=== PATIENT | female | born 1985 | race Caucasian/White ===

== ENCOUNTER 2016-06-10 20:25 | Emergency (ER) | payer OTHER ==
--- NOTE | 2016-06-10 20:49 | ED ---
ENT HPI - General Chief complaint: Dental/Oral Stated complaint: absys Time Seen by Provider: 06/10/16 20:33 Source: patient, RN notes reviewed Mode of arrival: ambulatory Limitations: no limitations - History of Present Illness Initial comments: Patient is a 31-year-old female presents to the emergency room for evaluation of the left upper facial swelling. Patient states she woke up this morning with left-sided facial swelling and pain. Patient states around 1:00 this afternoon she went to [facility] patient received a dose of IV antibiotics and morphine was sent home with clindamycin. Patient states that the swelling has significantly worsened since she was sent home from [facility]. Patient states that is also having increased pain. Patient denies dental pain. Patient does state she had tooth recently pulled out a month ago in that area. Patient states she is due to go to the dentist on Monday. Patient denies fevers or chills. Patient states she is having significant headache from facial swelling. - Related Data Previous Rx's Medication Instructions Recorded predniSONE 50 mg PO DAILY #4 tab 06/10/16 Allergies Allergy/AdvReac Type Severity Reaction Status Date / Time No Known Allergies Allergy Verified 06/10/16 20:30 Review of Systems ROS Statement: Those systems with pertinent positive or pertinent negative responses have been documented in the HPI. ROS Other: All systems not noted in ROS Statement are negative. Past Medical History Past Medical History: GERD/Reflux Additional Past Medical History / Comment(s): endometriosis History of Any Multi-Drug Resistant Organisms: None Reported Past Surgical History: Hysterectomy, Tubal Ligation Additional Past Surgical History / Comment(s): D&C, Past Psychological History: No Psychological Hx Reported Smoking Status: Never smoker Past Alcohol Use History: None Reported Past Drug Use History: None Reported - Past Family History Mother Family Medical History: No Reported History General Exam - General Exam Comments Initial Comments: Sitting in exam room, no acute distress. Limitations: no limitations General appearance: alert, in no apparent distress Head exam: Present: atraumatic, normocephalic, normal inspection Eye exam: Present: PERRL, EOMI ENT exam: Present: other (significant left sided facial edema over the left maxillary sinus) Neck exam: Present: lymphadenopathy (left anterior cervical) Respiratory exam: Absent: respiratory distress Extremities exam: Present: normal inspection Back exam: Present: normal inspection Neurological exam: Present: alert, oriented X3, CN II-XII intact, normal gait Psychiatric exam: Present: normal affect, normal mood Skin exam: Present: warm, dry, intact, normal color. Absent: rash Course Vital Signs 06/10/16 06/10/16 06/10/16 20:27 22:46 23:32 Temperature 98.4 F 9.8 F L 98.8 F Pulse Rate 120 H 102 H 100 Respiratory 20 18 18 Rate Blood Pressure 152/84 131/71 115/67 O2 Sat by Pulse 98 98 95 Oximetry Medical Decision Making - Medical Decision Making Patient is a 31-year-old female presents to the emergency room for evaluation of left-sided facial swelling and pain. Patient was given another dose of IV clindamycin. CT significant for facial cellulitis, no abscess noted. Patient is also given a dose of Solu-Medrol. Patient states she is feeling better after pain management. Labs show no significant findings. Will send patient home and advised her to continue taking her previously prescribed clindamycin as directed. Patient has [place] at home for pain. Will also add on prednisone. Advised patient to return for worsening symptoms. Patient states she understands everything that was discussed with her. Return parameters discussed. Case discussed with Dr. Wade. - Lab Data Result diagrams: 06/10/16 21:15 Lab Results 06/10/16 Range/Units 21:15 WBC 12.3 H (3.8-10.6) k/uL RBC 3.82 (3.80-5.40) m/uL Hgb 11.9 (11.4-16.0) gm/dL Hct 35.8 (34.0-46.0) % MCV 93.5 (80.0-100.0) fL MCH 31.2 (25.0-35.0) pg MCHC 33.4 (31.0-37.0) g/dL RDW 13.5 (11.5-15.5) % Plt Count 230 (150-450) k/uL Neutrophils % 91 % Lymphocytes % 5 % Monocytes % 3 % Eosinophils % 1 % Basophils % 0 % Neutrophils # 11.2 H (1.3-7.7) k/uL Lymphocytes # 0.6 L (1.0-4.8) k/uL Monocytes # 0.4 (0-1.0) k/uL Eosinophils # 0.1 (0-0.7) k/uL Basophils # 0.0 (0-0.2) k/uL - Radiology Data Radiology results: report reviewed, image reviewed Disposition Clinical Impression: Facial cellulitis Disposition: HOME SELF-CARE Condition: Good Instructions: Cellulitis (ED) Additional Instructions: Continue taking antibiotics as directed. Continue taking pain medications as needed. Ice on and off for 20 minutes at a time. Please follow up with primary care provider in 24-48 hours for reevaluation. If any new symptom arises , symptoms worsen or fever develops, return to ER as soon as possible. Prescriptions: predniSONE 50 mg PO DAILY #4 tab Referrals: Jose Lacey DO [Primary Care Provider] - 1-2 days Time of Disposition: 23:18
[2016-06-10] MEDS ORDERED: MORPHINE SULFATE 10 MG/ML SYRINGE IM STA (20:55)
[2016-06-10] MEDS ORDERED: CLINDAMYCIN 450 MG in DEXTROSE 5% IN WATER 50 ML IVPB STA ×2 (21:01)
[2016-06-10 21:26] LABS: Basophils % (A) 0 %; CH 31.5; CHCM 33.8; Eosinophils # (A) 0.1 k/uL (0-0.7); Eosinophils % (A) 1 %; HCT 35.8 % (34.0-46.0); HDW 2.65; HGB 11.9 gm/dL (11.4-16.0); Luc # (Auto) 0.08; Luc % (Auto) 1; Lymphocytes # (A) 0.6 k/uL (1.0-4.8); Lymphocytes % (A) 5 %; MCH 31.2 pg (25.0-35.0); MCHC 33.4 g/dL (31.0-37.0); MCV 93.5 fL (80.0-100.0); Mean Platelet Volume 6.9; Monocytes # (A) 0.4 k/uL (0-1.0); Monocytes % (A) 3 %; Neutrophils # (A) 11.2 k/uL (1.3-7.7); Neutrophils % (A) 91 %; RBC 3.82 m/uL (3.80-5.40); RDW 13.5 % (11.5-15.5); WBC 12.3 k/uL (3.8-10.6); WBC (Perox) 12.46
[2016-06-10] MEDS ORDERED: RX INFO: IV CONTRAST WAS GIVEN 1 EACH MISC MISCELLANE PRN (22:15)
[2016-06-10 22:47] VITALS: RESP 18
[2016-06-10] MEDS ORDERED: HYDROmorphone 1 MG/ML 1 ML SYRINGE IVP STA (22:47)
--- NOTE | 2016-06-10 23:03 | CT ---
EXAMINATION TYPE: CT orbits w con DATE OF EXAM: 06/10/2016 10:40 PM COMPARISON: NONE HISTORY: Pt states of left orbital swelling that is worsening down left side of face. CT DLP: 434.6 mGycm Automated exposure control for dose reduction was used. CONTRAST: Performed with IV Contrast, patient injected with 100 mL of Omnipaque 300. FINDINGS: Multiple axial sections were obtained from the top of the frontal sinuses to the lower mandible with intravenous contrast. There is soft tissue swelling and subcutaneous edema anterior to the left maxil la. The orbital margins are intact. There is no sign of retro-orbital mass. The maxilla is intact. Vi sualized mandible is intact. There is mucosal thickening in the right maxillary sinus. There is mucos al thickening in the right side ethmoid sinus. There is mild mucosal thickening at the left ostiomeat al complex. The nasal bone is intact. IMPRESSION: THERE IS LEFT-SIDED INFRAORBITAL SOFT TISSUE SWELLING CONSISTENT WITH CELLULITIS. NO EVIDENCE OF ORBI SUZETTE MASS. MILD RIGHT-SIDED MAXILLARY AND ETHMOID SINUSITIS. NO ABSCESS SEEN.
[2016-06-10] MEDS ORDERED: methylPREDNISolone SOD SUCCI 125 MG/2 ML VIAL IV STA (23:17)
[2016-06-10 23:33] VITALS: BP 115/67; PULSE 100; TEMP 98.8
== END 2016-06-10 23:32 | disposition home or self-care (01) ==
LOC: EC 20:25
DX: L03.211 Cellulitis of face (principal); R51 Headache
CPT/HCPCS: 36415; 85025; 70481; 99283; 96375; 96372; 96365; J2930; J2270; J1170; Q9967

== ENCOUNTER 2016-06-14 15:49 | Observation (INO) | payer OTHER ==
[2016-06-14] MEDS: KETOROLAC 30 MG/ML 1 ML VIAL IM SCH ×2 (18:14→23:52)
[2016-06-14 18:54] LABS: Basophils % (A) 0 %; CH 31.4; CHCM 33.3; Eosinophils # (A) 0.1 k/uL (0-0.7); Eosinophils % (A) 1 %; HCT 32.9 % (34.0-46.0); HDW 2.69; Luc # (Auto) 0.17; Luc % (Auto) 2; Lymphocytes # (A) 2.3 k/uL (1.0-4.8); Lymphocytes % (A) 24 %; MCH 31.7 pg (25.0-35.0); MCHC 33.4 g/dL (31.0-37.0); MCV 94.9 fL (80.0-100.0); Mean Platelet Volume 6.7; Monocytes # (A) 0.5 k/uL (0-1.0); Monocytes % (A) 5 %; Neutrophils # (A) 6.7 k/uL (1.3-7.7); Neutrophils % (A) 69 %; RBC 3.46 m/uL (3.80-5.40); RDW 13.8 % (11.5-15.5); WBC 9.8 k/uL (3.8-10.6)
[2016-06-14 19:01] LABS: Anion Gap 9 mmol/L; Blood Urea Nitrogen 17 mg/dL (7-17); Calcium 8.9 mg/dL (8.4-10.2); Carbon Dioxide 27 mmol/L (22-30); Chloride 103 mmol/L (98-107); Glucose 88 mg/dL (74-99); Non-African American GFR(MDRD) >60 (>60 ml/min/1.73 sqM); Potassium 3.4 mmol/L (3.5-5.1); Sodium 139 mmol/L (137-145)
[2016-06-14] MEDS: SODIUM CHLORIDE 0.9% 1,000 ML with POTASSIUM CHLORIDE 10 MEQ IV SCH ×2 (19:30)
[2016-06-14] MEDS: ONDANSETRON 4 MG/2 ML VIAL IVP PRN (21:07)
[2016-06-14] MEDS: PIPERACILLIN-TAZOBACTAM 3.375 GM in DEXTROSE/WATER 1 50ML.BAG IVPB SCH (23:52)
[2016-06-15] MEDS: ONDANSETRON 4 MG/2 ML VIAL IVP PRN ×2 (05:54→14:41)
[2016-06-15] MEDS: KETOROLAC 30 MG/ML 1 ML VIAL IM SCH ×4 (05:54→23:48)
[2016-06-15] MEDS: ENOXAPARIN 40 MG/0.4 ML SYRINGE SQ SCH (07:32)
[2016-06-15] MEDS: PIPERACILLIN-TAZOBACTAM 3.375 GM in DEXTROSE/WATER 1 50ML.BAG IVPB SCH (07:32)
[2016-06-15] MEDS: SODIUM CHLORIDE 0.9% 1,000 ML with POTASSIUM CHLORIDE 10 MEQ IV SCH ×6 (07:32→20:48)
[2016-06-15 10:15] VITALS: RESP 16
[2016-06-15] MEDS ORDERED: IV VANCOMYCIN PER PHARMACY 1 EACH MISC MISCELLANE PRN (10:59)
[2016-06-15] MEDS ORDERED: VANCOMYCIN 1,000 MG in SODIUM CHLORIDE 0.9% 250 ML IVPB STA (11:05)
--- NOTE | 2016-06-15 11:36 | HP ---
DATE OF ADMISSION: 06/14/2016 PRESENTING COMPLAINT: Left facial swelling. HISTORY OF PRESENTING COMPLAINT: This is a 31-year-old patient who was admitted from Dr. Lacey's office. Patient about 3 or 4 days ago started off with what she felt like sinus infection with green snot, did go down to [facility] ER and also [facility]. Did have a CT scan, showed cellulitis of the soft tissue, very small amount of sinusitis, if any. Patient denies any tooth pain. Patient was on Augmentin, did not respond to it, hence she was admitted. Patient did not have any obvious fever, but had felt hot and cold. Patient's is at the bedside. REVIEW OF SYSTEMS: CONSTITUTIONAL: Tired. HEENT: Left-sided facial swelling, which is improved actually after antibiotics overnight. RESPIRATORY: None. CARDIOVASCULAR: None. GASTROINTESTINAL: None. GENITOURINARY: None. MUSCULOSKELETAL: None. DERMATOLOGIC: None. HEMATOLOGIC: None. LYMPHATIC: None. PSYCHIATRY: None. NEUROLOGICAL: None. Past history of endometriosis. PAST SURGICAL HISTORY: Cholecystectomy, partial hysterectomy, tubal ligation, D&C. SOCIAL HISTORY: Does not smoke or drink alcohol. , homemaker. FAMILY HISTORY: Reviewed, noncontributory to presentation. HOME MEDICATIONS: 1. Motrin 600 mg p.o. t.i.d. p.r.n. 2. Augmentin 1 tablet q.12. ALLERGIES: None. On examination, temperature 98.4, pulse 120, respirations 20, blood pressure 131/71, pulse ox 98% on room air. GENERAL APPEARANCE: Average build, sitting up, not in distress. EYES: Pupils equal, conjunctivae normal. HEENT: There is no tenderness either in the upper maxilla or lower maxilla in the tooth on deep palpation. There is no tenderness over the maxilla. There is some facial swelling in the infraorbital area, unable to do deep palpation. NECK: JVD not raised. Mass not palpable. Respiratory effort normal. Lungs are clear. CARDIOVASCULAR: First and second sounds normal. No edema. ABDOMEN: Soft, nontender. Liver and spleen not palpable. LYMPHATIC: No lymph node palpable in neck or axillae. PSYCHIATRY: Alert and oriented x3. Mood and affect normal. NEUROLOGICAL: Pupils equal, cranial nerves grossly intact, power and sensation grossly intact. INVESTIGATIONS: White count 12.3 on 06/10 and yesterday it was 9.8. Patient's CT scan from 06/10/2016 shows soft tissue swelling and subcutaneous edema attributed to the left maxilla, orbital margins are intact, maxilla is intact. Slight mucosal thickening on the right maxillary sinus. Mild mucosal thickening at the left ostiomeatal complex. ASSESSMENT: Left facial cellulitis, probably from using the tissue and maybe a cracking skin around nasolabial fold area. Overnight patient has received IV Zosyn to which she is feeling a bit better. Patient is able to tolerate liquids comfortably, in fact on solid foods. I do not see any obvious evidence of any tooth abscess. There is no tenderness on the teeth. PLAN: Patient has been IV Unasyn. I will add vancomycin. Diet will be advanced. Toradol for anterior inflammatory affect. Care was discussed with the patient and her in detail.
[2016-06-15 11:51] VITALS: BMI 23.2
--- NOTE | 2016-06-15 13:05 | CONS ---
DATE OF CONSULTATION: 06/15/2016 Reason for consultation is facial cellulitis. HISTORY OF PRESENT ILLNESS: The patient is a 31-year-old female who started having a problem with left facial swelling last week for which the patient was initially evaluated at [facility] ER. Patient diagnosed with cellulitis. She was given an IV antibiotic and then discharged home on oral antibiotics and initial pain medication. The patient said when she went home, the left-sided facial swelling became worse. She is describing pain to be throbbing 6 to 7/10 and no radiation. The patient denies having any other sinus symptoms or sinus congestion, runny nose, post-nasal drip or sinus headache, besides having any fever. Subsequently presented to the [facility] ER where the patient has been evaluated. The patient did have a CT of the orbits with contrast which did show left-sided infraorbital soft tissue swelling consistent with cellulitis. No evidence of orbital mass, mild right-sided maxillary sinusitis and no abscess seen. Patient subsequently was discharged home and she was advised to follow up with the primary care physician who did evaluate the patient. Hence, subsequently the patient directed to the hospital for IV antibiotic therapy. The patient will be started on Zosyn. I was asked to see the patient for further recommendation regarding antibiotic therapy. The patient was noticed to have no swelling or redness on my evaluation this morning. No fever has been noticed. Patient denies any difficulty swallowing. The patient did have poor dentition but denies worsening pain in the upper or lower teeth on the left side. REVIEW OF SYSTEMS: CONSTITUTIONAL: Positive for weakness and some chills. EYES: No complaint. ENT: As per HPI. RESPIRATORY: No complaint. CARDIOVASCULAR: No complaint. GENITOURINARY: No complaint. GASTROINTESTINAL: No complaint. MUSCULOSKELETAL: No complaint. INTEGUMENTARY: No complaint. PSYCHOLOGIC: No complaint. ENDOCRINE: No complaint. NEUROLOGIC: No complaint. PAST MEDICAL HISTORY: Gastroesophageal reflux disease, endometriosis. PAST SURGICAL HISTORY: Hysterectomy, tubal ligation, D&C. SOCIAL HISTORY: Denies smoking, drinking or drug use. FAMILY HISTORY: No pertinent finding noticed. ALLERGIES: No known drug allergies. Medications currently include the patient is on: 1. [place]per-tazobactam. 2. Zofran. 3. Lovenox. 4. Toradol. 5. IV fluid. On examination, blood pressure is 99/54 with a pulse of 88, temperature 98.6. She is 98% on room air. General description is an elderly female, lying in bed in no distress. No tachypnea or accessory muscle of respiration use. HEENT examination shows slight pallor. No scleral icterus. Oral mucosa is moist. The patient did have evidence of poor dentition on the upper premolar area with some gingivitis. No sinus tenderness was noticed. NECK: Trachea central. There is no thyromegaly. No lymphadenopathy. LUNGS: Unlabored breathing. Clear to auscultation anteriorly. HEART: S1, S2. Regular rate and rhythm. ABDOMEN: Soft, no tenderness. EXTREMITIES: No edema of the feet. LABS: Hemoglobin is 11 with a white count of 9.8 with a BUN of 17, creatinine 0.54. She did have blood cultures obtained which are currently pending. DIAGNOSTIC IMPRESSION AND PLAN: Patient with left facial cellulitis more likely secondary to underlying poor dentition. Clinically doubt related to underlying sinus infection as the patient did not have significant sinus symptoms and she was noticed to have significant mobility on the dentition examination today. Patient needs to be worked up. No evidence of dental abscess for which Oral Surgery has already been consulted. PLAN: 1. Discontinue the Zosyn. 2. Will start the patient on Unasyn 3 gm IV q6hr. 3. Await the Oral Surgery evaluation to see if the patient may benefit from extraction of the infected teeth and deep culture. 4. Will follow up on the clinical condition and cultures to further adjust the medication if needed. Thank you for this consultation. Will follow this patient along with you. NICOEL
[2016-06-15] MEDS: AMPICILLIN-SULBACTAM 3 GM in SODIUM CHLORIDE 0.9% 100 ML IVPB SCH ×3 (13:07→23:48)
[2016-06-15] MEDS: VANCOMYCIN 1,000 MG in SODIUM CHLORIDE 0.9% 250 ML IVPB SCH (21:25)
[2016-06-16] MEDS: KETOROLAC 30 MG/ML 1 ML VIAL IM SCH ×2 (05:37→12:42)
[2016-06-16] MEDS: SODIUM CHLORIDE 0.9% 1,000 ML with POTASSIUM CHLORIDE 10 MEQ IV SCH ×4 (05:38→11:25)
[2016-06-16] MEDS: AMPICILLIN-SULBACTAM 3 GM in SODIUM CHLORIDE 0.9% 100 ML IVPB SCH ×2 (05:38→12:45)
[2016-06-16 07:57] VITALS: BP 118/70; PULSE 98; TEMP 97
[2016-06-16] MEDS: ENOXAPARIN 40 MG/0.4 ML SYRINGE SQ SCH (08:19)
[2016-06-16] MEDS: VANCOMYCIN 1,000 MG in SODIUM CHLORIDE 0.9% 250 ML IVPB SCH (08:19)
[2016-06-16 09:06] LABS: Anion Gap 7 mmol/L; Blood Urea Nitrogen 11 mg/dL (7-17); Calcium 8.4 mg/dL (8.4-10.2); Carbon Dioxide 25 mmol/L (22-30); Chloride 108 mmol/L (98-107); Glucose 94 mg/dL (74-99); Non-African American GFR(MDRD) >60 (>60 ml/min/1.73 sqM); Potassium 4.1 mmol/L (3.5-5.1); Sodium 140 mmol/L (137-145)
--- NOTE | 2016-06-16 14:22 | PN ---
DATE OF SERVICE: 06/16/2016 Reason for follow-up: Left facial cellulitis and dental infection. INTERVAL HISTORY: The patient is afebrile. The patient denies any worsening pain to the left facial area or any difficulty swallowing. Denies any chest pain or shortness of breath or cough. No abdominal pain or any diarrhea. On examination, blood pressure 118/70 with a pulse of 90, temperature 97. She is 100% on room air. General description is a middle-age female up in the bed in no distress. RESPIRATORY SYSTEM: Unlabored breathing. Clear to auscultation anteriorly. HEART: S1, S2. Regular rate and rhythm. ABDOMEN: Soft. No tenderness. Examination of the oral cavity did have evidence of poor dentition. No evidence of any swelling or facial redness was noticed. LABS: BUN of 11, creatinine 0.57. Blood culture has been negative. DIAGNOSTIC IMPRESSION AND PLAN: Patient with left facial swelling and redness more likely due to underlying poor dental hygiene and poor dentition. Patient advised did well on Unasyn, plan will be to finish therapy with Augmentin 875 b.i.d. for two weeks with outpatient follow-up. [facility]
[2016-06-17] MEDS ORDERED: VANCOMYCIN TROUGH DUE 1 EACH MISC MISCELLANE ONE (07:00)
--- NOTE | 2016-06-17 09:58 | DS ---
DATE OF ADMISSION: 06/15/2016 DATE OF DISCHARGE: 06/16/2016 FINAL DIAGNOSES: Acute severe facial cellulitis having failed outpatient treatment. HOSPITAL COURSE: This patient having failed outpatient treatment presented with severe facial cellulitis. The patient was started on Augmentin as an outpatient. Vancomycin was added just in case MRSA was present. No obvious sinusitis was found. Patient responded well to the same. On the day of discharge, swelling had greatly gone down. On examination, no tenderness, afebrile. CONSULTATION: From infectious disease. DISCHARGE MEDICATIONS: 1. Motrin 600 mg p.o. t.i.d. p.r.n. 2. Bactrim DS 1 tablet p.o. b.i.d. 14 tablets. Follow up with Dr. Lacey on 06/23/2016. Follow-up with Dr. Coulter pnate.
== END 2016-06-16 14:41 | disposition home or self-care (01) ==
LOC: 4MS4W 16:11 → INTOOBSV 06-15 12:29 → OBSVTOIN 06-15 12:29
PROVIDERS: ADMIT Hospitalist; ATTEND Hospitalist
DX: L03.211 Cellulitis of face (principal); K05.10 Chronic gingivitis, plaque induced; Z90.49 Acquired absence of other specified parts of digestive tract; Z90.711 Acquired absence of uterus with remaining cervical stump
CPT/HCPCS: 80048 ×2; 85025; 87040; G0379; G0378 ×3; J3370 ×2; J2405 ×2; J3480 ×3; J1650 ×2; J1885 ×3; J2543 ×2; J0295 ×2; 96365; 96366; 96367; 96368; 96372; 96375; 96376

== ENCOUNTER → 2017-08-28 | Outpatient (CLI) | payer OTHER ==
--- NOTE | 2017-08-28 23:03 | XR ---
EXAMINATION TYPE: XR shoulder complete RT DATE OF EXAM: 08/28/2017 COMPARISON: NONE HISTORY: Pain TECHNIQUE: Three views are submitted. FINDINGS: The osseous structures are intact. There is no acute fracture or dislocation. The AC joint is maint ained. IMPRESSION: 1. No acute process. If symptoms persist consider MRI.
--- NOTE | 2017-08-28 23:04 | XR ---
EXAMINATION TYPE: XR elbow limited RT DATE OF EXAM: 08/28/2017 COMPARISON: NONE HISTORY: Pain FINDINGS: Two views of the elbow demonstrate no pathologic joint effusion. The osseous structures are intact. There is no acute fracture or dislocation. IMPRESSION: 1. No acute fracture or dislocation. If symptoms persist follow-up study in 7 to 10 days could be ob tained.
== END | disposition home or self-care (01) ==
LOC: RADXRMAIN 10:41
PROVIDERS: ATTEND Family Medicine
DX: M79.601 Pain in right arm (principal)

== ENCOUNTER → 2018-01-12 | Outpatient (CLI) | payer OTHER ==
--- NOTE | 2018-01-15 09:51 | MM ---
Reason for exam: clinical finding. Last mammogram was performed 6 years and 2 months ago. History: Patient has history of endometrial cancer at age 13. Family history of breast cancer in paternal aunt at age 50. Benign excisional biopsy of the left breast, 2005. Physical Findings: Nurse Summary: 1 x 1cm nodule in the left breast at scar, various palpables bilateral breasts, all soft, movable (nurse ts). MG Diagnostic Mammo w CAD GREG Bilateral CC and MLO view(s) were taken. Prior study comparison: November 09, 2011, CAD bilateral diagnostic mammogram. July 06, 2007, mammogram, performed at [facility]. The breast tissue is extremely dense which could obscure a lesion on mammography. There are round calcifications in the right breast. There is no discrete abnormality. These results were verbally communicated with the patient and result sheet given to the patient on 01/12/18. ASSESSMENT: Incomplete: need additional imaging evaluation, BI-RAD 0 RECOMMENDATION: Ultrasound of the left breast. (palpable)
--- NOTE | 2018-01-15 10:13 | USB ---
Reason for exam: additional evaluation requested from abnormal screening. History: Patient has history of endometrial cancer at age 13. Family history of breast cancer in paternal aunt at age 50. Benign excisional biopsy of the left breast, 2005. US Breast BILAT Right complete breast ultrasound includes all four quadrants, the retroareolar region and axilla. Finding demonstrates a 0.9 x 0.5 x 0.6cm cystic cluster at 9 o'clock and a 0.5 x 0.4 x 0.7cm cystic cluster at 10 o'clock. Left complete breast ultrasound includes all four quadrants, the retroareolar region and axilla. Finding demonstrates a 0.4 x 0.3 x 0.3cm cystic lesion at 12 o'clock, a 0.5 x 0.2 x 0.4cm cystic lesion at 1 o'clock, a 0.8 x 0.3 x 0.5cm cystic cluster at 3 o'clock and a 0.5 x 0.3 x 0.5cm cystic cluster at 10 o'clock. Overall fibrocystic findings. These results were verbally communicated with the patient and result sheet given to the patient on 01/12/18. ASSESSMENT: Benign, BI-RAD 2 RECOMMENDATION: Routine screening mammogram of both breasts at age 38. Manage patient on a clinical basis.
== END ==
LOC: RADMAMWWP 15:05
PROVIDERS: ATTEND Family Medicine
DX: R92.8 Other abnormal and inconclusive findings on diagnostic imaging of breast (principal); N60.11 Diffuse cystic mastopathy of right breast; N60.12 Diffuse cystic mastopathy of left breast
CPT/HCPCS: 77066

== ENCOUNTER → 2018-05-31 | Outpatient (CLI) | payer OTHER ==
[2018-05-31 13:31] VITALS: BP 115/74; PULSE 101; RESP 18; TEMP 98.3; BMI 24.5
--- NOTE | 2018-05-31 14:12 | P.GSHP ---
History of Present Illness H&P Date: 05/31/18 Chief Complaint: breast cyst Britt is a 33-year-old white female who presents with a complaint of fibrocystic breast changes bilaterally. The changes are more prominent for the patient on the left breast. The patient had a bilateral mammogram performed in December 2017. This revealed extremely dense breast tissue and some round calcifications in the right breast but no discrete abnormality of concern. The patient was recommended to undergo an ultrasound of both breast. This was preformed on the same day and was a BIRADS 2, showing bilateral breast cyst. The patient has no new changes in her breasts. She does have bilateral nipple discharge which is sometimes clear and sometimes reddish brown. She has no history of trauma or infection in the breast. She has left breast discomfort, it is not related to her periods. She had a hysterctomy at 21 for endometriosis. She did not have her ovaries removed. The pain and cystic changes are not cyclical. The patient does not smoke, she is not exposed to second hand smoke very often, she does not drink caffienated beverages, and does not eat much chocolate. Family History: mother: lung cancer maternal grandfather: lung cancer maternal uncle: lung cancer paternal aunt: breast cancer of it at 49, diagnosed 6 months prior Hormonal History: menarche: 10 : 5, 3 live births, first born at 12 2 miscarrages, breast fed: none hysterectomy at 21 for endometroisis BCP: 2 years hormones: injections after hysterectomy, last one several years ago, done as they were checking her hormone levels Past Surgical History: 1. hysterectomy 2. breast biopsy left breast 2010 3. gallbladder 4. D&C Past Medical History: none Social History: smoke: none alcohol: none drugs: none - Constitutional Constitutional: Reports sweats - EENT Eyes: left blurred vision (intermittant related to migrains), denies pain Ears: bilateral: tinnitus, deny: decreased hearing Ears, nose, mouth and throat: Reports headache - Breasts Breasts: bilateral: as per HPI - Cardiovascular Cardiovascular: Denies chest pain, Denies shortness of breath - Respiratory Comment: asthma Respiratory: Denies cough, Denies 7 - Gastrointestinal Gastrointestinal: Denies abdominal pain, Denies diarrhea, Denies nausea, Denies vomiting - Genitourinary (Female) Genitourinary: Denies dysuria, Denies hematuria - Menstruation Menstruation: Reports post hysterectomy - Musculoskeletal Comment: fibromyalgia - Integumentary Integumentary: Denies pruritus, Denies rash - Neurological Neurological: Denies numbness, Denies weakness - Psychiatric Psychiatric: Denies anxiety, Denies depression - Endocrine Endocrine: Denies fatigue, Denies weight change - Hematologic/Lymphatic Comment: none - Allergic/Immunologic Comment: none Allergic/Immunologic: Reports as per HPI Past Medical History Past Medical History: GERD/Reflux Additional Past Medical History / Comment(s): endometriosis History of Any Multi-Drug Resistant Organisms: None Reported Past Surgical History: Cholecystectomy, Hysterectomy, Tubal Ligation Additional Past Surgical History / Comment(s): D&C, Past Anesthesia/Blood Transfusion Reactions: No Reported Reaction Past Psychological History: No Psychological Hx Reported Smoking Status: Never smoker Past Alcohol Use History: None Reported Past Drug Use History: None Reported - Past Family History Father History Unknown: Yes Mother Family Medical History: No Reported History Additional Family Medical History / Comment(s): HEALTHY Medications and Allergies Home Medications Medication Instructions Recorded Confirmed Type Ibuprofen [Motrin] 600 mg PO TID PRN 06/14/16 05/31/18 History Allergies Allergy/AdvReac Type Severity Reaction Status Date / Time No Known Allergies Allergy Verified 05/31/18 13:31 Surgical - Exam Vital Signs Temp Pulse Resp BP 98.3 F 101 H 18 115/74 05/31/18 13:23 05/31/18 13:23 05/31/18 13:23 05/31/18 13:23 BMI 24.6 - General well developed, well nourished, no distress - Eyes normal ocular movement - ENT no hearing loss, no congestion - Neck no masses, trachea midline - Respiratory normal respiratory effort, clear to auscultation - Cardiovascular Rhythm: regular Heart Sounds: normal: S1, S2 - Abdomen Abdomen: soft, non tender, no guarding, no rigid, no rebound - Neurologic no disoriented, no combative - Musculoskeletal normal gait, normal posture - Psychiatric oriented to time, oriented to person, oriented to place, speech is normal, memory intact Breast examination: Right breast: Multi-positional exam no dominant masses or nodules of concern fibrocystic dense breast Right axilla: No adenopathy of concern Left breast: Multi-positional exam no dominant masses or nodules of concern fibrocystic, dense breast Left axilla: no adenopathy of concern no nipple discharge at this time Results mammogram and ultrasound reports reviewed Assessment and Plan Assessment: impression: 1. dense fibrocystic breast bilateral 2. breast pain Plan: 1. [place] oil 2. Appointment with Dr. Casiano, possible testing for hormone levels 3. follow up in 6 weeks CC: Dr. Lacey
== END | disposition home or self-care (01) ==
LOC: WWCWWP 13:10
PROVIDERS: ATTEND Surgery
DX: Z53.9 Procedure and treatment not carried out, unspecified reason (principal)

== ENCOUNTER → 2018-09-17 | Outpatient (CLI) | payer OTHER ==
--- NOTE | 2018-09-18 14:24 | XR ---
EXAMINATION TYPE: XR chest 2V DATE OF EXAM: 09/17/2018 COMPARISON: Prior chest x-ray 04/06/2015 HISTORY: Palpable mass, R07.89 TECHNIQUE: Frontal and lateral views of the chest are obtained. FINDINGS: There is no focal air space opacity, pleural effusion, or pneumothorax seen. The cardiac silhouette size is stable. The osseous structures are intact. Surgical clips are present in the rig ht upper abdomen. There is overlying artifact. IMPRESSION: No acute cardiopulmonary process.
== END ==
LOC: RADXRMAIN 16:59
PROVIDERS: ATTEND Physician Assistant
DX: R07.89 Other chest pain (principal)
CPT/HCPCS: 71046

== ENCOUNTER 2018-10-24 14:42 | Emergency (ER) | payer OTHER ==
[2018-10-24 14:48] VITALS: TEMP 98.1
[2018-10-24] MEDS ORDERED: ONDANSETRON 4 MG/2 ML VIAL IVP STA (15:31)
[2018-10-24] MEDS ORDERED: SODIUM CHLORIDE 0.9% 1,000 ML IV ONE (15:32)
--- NOTE | 2018-10-24 15:40 | ED ---
Nausea/Vomiting/Diarrhea HPI - General Chief complaint: Nausea/Vomiting/Diarrhea Stated complaint: vomiting Source: patient Mode of arrival: ambulatory Limitations: no limitations - History of Present Illness Initial comments: 33-year-old female presenting today for chief complaint of vomiting. Patient states she has had mid abdominal pain and vomiting, diarrhea for the past day. Patient states that she cannot keep anything down. Patient is concerned of the abdominal cramping and presents emergency department for evaluation. Patient denies melena hematochezia, hematemesis. Patient denies recent travel or sick contacts. Patient denies states she has a partial hysterically. Remaining review of systems negative. - Related Data Home Medications Medication Instructions Recorded Confirmed Ibuprofen [Motrin] 600 mg PO TID PRN 06/14/16 10/24/18 Previous Rx's Medication Instructions Recorded Ondansetron Odt [Zofran Odt] 4 mg PO Q8HR PRN 5 Days #15 tab 10/24/18 Allergies Allergy/AdvReac Type Severity Reaction Status Date / Time No Known Allergies Allergy Verified 10/24/18 14:51 Review of Systems ROS Statement: Those systems with pertinent positive or pertinent negative responses have been documented in the HPI. ROS Other: All systems not noted in ROS Statement are negative. Past Medical History Past Medical History: GERD/Reflux Additional Past Medical History / Comment(s): endometriosis History of Any Multi-Drug Resistant Organisms: None Reported Past Surgical History: Cholecystectomy, Hysterectomy, Tubal Ligation Additional Past Surgical History / Comment(s): D&C, Past Anesthesia/Blood Transfusion Reactions: No Reported Reaction Past Psychological History: No Psychological Hx Reported Smoking Status: Never smoker Past Alcohol Use History: None Reported Past Drug Use History: None Reported - Past Family History Father History Unknown: Yes Mother Family Medical History: No Reported History Additional Family Medical History / Comment(s): HEALTHY General Exam - General Exam Comments Initial Comments: General: The patient is awake and alert, in no distress, and does not appear acutely ill. Eye: +3 mm pupils are equal, round and reactive to light, extra-ocular movements are intact. No nystagmus. There is normal conjunctiva bilaterally. No signs of icterus. Ears, nose, mouth and throat: There are moist mucous membranes and no oral lesions. Neck: The neck is supple, there is no tenderness or JVD. Cardiovascular: There is a regular rate and rhythm. No murmur, rub or gallop is appreciated. Respiratory: Lungs are clear to auscultation, respirations are non-labored, breath sounds are equal. No wheezes, stridor, rales, or rhonchi. Gastrointestinal: Soft, non-distended, abdomen tender to the periumbilical region without masses or organomegaly noted. There is no rebound or guarding present. Bowel sounds are unremarkable. Musculoskeletal: Normal ROM, no tenderness. Strength 5/5. Sensation intact. Pulses equal bilaterally 2+. Neurological: A&O x 3. CN II-XII intact, There are no obvious motor or sensory deficits. Coordination appears grossly intact. Speech is normal. Skin: Skin is warm and dry and no rashes or lesions are noted. Psychiatric: Cooperative, appropriate mood & affect, normal judgment. Limitations: no limitations Course Vital Signs 10/24/18 10/24/18 14:43 18:42 Temperature 98.1 F Pulse Rate 100 79 Respiratory 18 16 Rate Blood Pressure 125/78 108/73 O2 Sat by Pulse 98 100 Oximetry Medical Decision Making - Medical Decision Making 33-year-old female presented for vomiting diarrhea mid abdominal pain. Developing examination. Laboratory studies unremarkable. Urinalysis unremarkable. Patient's labs have no acute abnormalities. Patient was given IV hydration and antiemetics the emergency department. CT of abdomen and pelvis obtained given abdominal pain on examination in the periumbilical region. CT was negative for acute appendicitis, or any other acute intraabdominal process. Discussed the case with attending provider as well as results with patient we feel patient is stable for discharge with outpatient primary care follow-up. Patient is agreeable care plan and discharge at this time. Return parameters were discussed. - Lab Data Result diagrams: 10/24/18 16:15 10/24/18 16:15 Lab Results 10/24/18 10/24/18 10/24/18 Range/Units 16:15 16:15 16:15 WBC 6.3 (3.8-10.6) k/uL RBC 4.29 (3.80-5.40) m/uL Hgb 13.0 (11.4-16.0) gm/dL Hct 40.0 (34.0-46.0) % MCV 93.2 (80.0-100.0) fL MCH 30.3 (25.0-35.0) pg MCHC 32.6 (31.0-37.0) g/dL RDW 13.2 (11.5-15.5) % Plt Count 219 (150-450) k/uL Neutrophils % 72 % Lymphocytes % 20 % Monocytes % 5 % Eosinophils % 1 % Basophils % 1 % Neutrophils # 4.6 (1.3-7.7) k/uL Lymphocytes # 1.2 (1.0-4.8) k/uL Monocytes # 0.3 (0-1.0) k/uL Eosinophils # 0.1 (0-0.7) k/uL Basophils # 0.0 (0-0.2) k/uL Sodium 142 (137-145) mmol/L Potassium 3.9 (3.5-5.1) mmol/L Chloride 106 (98-107) mmol/L Carbon Dioxide 24 (22-30) mmol/L Anion Gap 12 mmol/L BUN 5 L (7-17) mg/dL Creatinine 0.65 (0.52-1.04) mg/dL Est GFR (CKD-EPI)AfAm >90 (>60 ml/min/1.73 sqM) Est GFR (CKD-EPI)NonAf >90 (>60 ml/min/1.73 sqM) Glucose 109 H (74-99) mg/dL Calcium 9.4 (8.4-10.2) mg/dL Total Bilirubin 0.8 (0.2-1.3) mg/dL AST 31 (14-36) U/L ALT 24 (9-52) U/L Alkaline Phosphatase 46 (38-126) U/L Total Protein 7.9 (6.3-8.2) g/dL Albumin 5.0 (3.5-5.0) g/dL Amylase 65 (30-110) U/L Lipase 66 (23-300) U/L Urine Color Yellow Urine Appearance Clear (Clear) Urine pH 6.0 (5.0-8.0) Ur Specific [place] 1.015 (1.001-1.035) Urine Protein Negative (Negative) Urine Glucose (UA) Negative (Negative) Urine Ketones 3+ H (Negative) Urine Blood Trace H (Negative) Urine Nitrite Negative (Negative) Urine Bilirubin Negative (Negative) Urine Urobilinogen <2.0 (<2.0) mg/dL Ur Leukocyte Esterase Negative (Negative) Urine RBC 4 (0-5) /hpf Urine WBC 1 (0-5) /hpf Ur Squamous Epith Cells 1 (0-4) /hpf Urine Mucus Occasional H (None) /hpf Urine HCG, Qual (Not Detectd) 10/24/18 Range/Units 16:15 WBC (3.8-10.6) k/uL RBC (3.80-5.40) m/uL Hgb (11.4-16.0) gm/dL Hct (34.0-46.0) % MCV (80.0-100.0) fL MCH (25.0-35.0) pg MCHC (31.0-37.0) g/dL RDW (11.5-15.5) % Plt Count (150-450) k/uL Neutrophils % % Lymphocytes % % Monocytes % % Eosinophils % % Basophils % % Neutrophils # (1.3-7.7) k/uL Lymphocytes # (1.0-4.8) k/uL Monocytes # (0-1.0) k/uL Eosinophils # (0-0.7) k/uL Basophils # (0-0.2) k/uL Sodium (137-145) mmol/L Potassium (3.5-5.1) mmol/L Chloride (98-107) mmol/L Carbon Dioxide (22-30) mmol/L Anion Gap mmol/L BUN (7-17) mg/dL Creatinine (0.52-1.04) mg/dL Est GFR (CKD-EPI)AfAm (>60 ml/min/1.73 sqM) Est GFR (CKD-EPI)NonAf (>60 ml/min/1.73 sqM) Glucose (74-99) mg/dL Calcium (8.4-10.2) mg/dL Total Bilirubin (0.2-1.3) mg/dL AST (14-36) U/L ALT (9-52) U/L Alkaline Phosphatase (38-126) U/L Total Protein (6.3-8.2) g/dL Albumin (3.5-5.0) g/dL Amylase (30-110) U/L Lipase (23-300) U/L Urine Color Urine Appearance (Clear) Urine pH (5.0-8.0) Ur Specific [place] (1.001-1.035) Urine Protein (Negative) Urine Glucose (UA) (Negative) Urine Ketones (Negative) Urine Blood (Negative) Urine Nitrite (Negative) Urine Bilirubin (Negative) Urine Urobilinogen (<2.0) mg/dL Ur Leukocyte Esterase (Negative) Urine RBC (0-5) /hpf Urine WBC (0-5) /hpf Ur Squamous Epith Cells (0-4) /hpf Urine Mucus (None) /hpf Urine HCG, Qual Not Detected (Not Detectd) Disposition Clinical Impression: Vomiting, Diarrhea Disposition: HOME SELF-CARE Condition: Good Instructions (If sedation given, give patient instructions): Acute Nausea and Vomiting (ED), Acute Diarrhea (ED) Additional Instructions: Please use medication as discussed. Please follow-up with family doctor in the next 2 days of symptoms have not improved. Please return to emergency room if the symptoms increase or worsen or for any other concerns. Prescriptions: Ondansetron Odt [Zofran Odt] 4 mg PO Q8HR PRN 5 Days #15 tab PRN Reason: Nausea Is patient prescribed a controlled substance at d/c from ED?: No Referrals: Jose Lacey DO [Primary Care Provider] - 1-2 days Time of Disposition: 17:50
[2018-10-24 16:24] LABS: Basophils % (A) 1 %; Eosinophils # (A) 0.1 k/uL (0-0.7); Eosinophils % (A) 1 %; Lymphocytes # (A) 1.2 k/uL (1.0-4.8); Lymphocytes % (A) 20 %; MCH 30.3 pg (25.0-35.0); MCHC 32.6 g/dL (31.0-37.0); MCV 93.2 fL (80.0-100.0); Mean Platelet Volume 7.2; Monocytes # (A) 0.3 k/uL (0-1.0); Monocytes % (A) 5 %; Neutrophils # (A) 4.6 k/uL (1.3-7.7); Neutrophils % (A) 72 %; Platelet Count 219 k/uL (150-450); RBC 4.29 m/uL (3.80-5.40); RDW 13.2 % (11.5-15.5); WBC 6.3 k/uL (3.8-10.6)
[2018-10-24 16:27] LABS: Appearance,Urine Clear (Clear); Bilirubin,Urine Negative (Negative); Blood,Urine Trace (Negative); Color,Urine Yellow; Glucose,Urine (UA) Negative (Negative); Ketones,Urine 3+ (Negative); Leukocyte Esterase,Urine Negative (Negative); Mucus,Urine Occasional /hpf; Nitrite,Urine Negative (Negative); Protein,Urine Negative (Negative); RBC,Urine 4 /hpf (0-5); Specific Gravity,Urine 1.015 (1.001-1.035); Squamous Epithelial Cell,Urine 1 /hpf (0-4); Urobilinogen,Urine <2.0 mg/dL (<2.0); WBC,Urine 1 /hpf (0-5)
[2018-10-24 16:33] LABS: ALT 24 U/L (9-52); AST 31 U/L (14-36); African American GFR (CKD) >90 (>60 ml/min/1.73 sqM); Alkaline Phosphatase 46 U/L (38-126); Amylase 65 U/L (30-110); Anion Gap 12 mmol/L; Blood Urea Nitrogen 5 mg/dL (7-17); Calcium 9.4 mg/dL (8.4-10.2); Carbon Dioxide 24 mmol/L (22-30); Chloride 106 mmol/L (98-107); Glucose 109 mg/dL (74-99); Lipase 66 U/L (23-300); Potassium 3.9 mmol/L (3.5-5.1); Sodium 142 mmol/L (137-145); Total Bilirubin 0.8 mg/dL (0.2-1.3); Total Protein 7.9 g/dL (6.3-8.2)
--- NOTE | 2018-10-24 17:40 | CT ---
EXAMINATION TYPE: CT abdomen pelvis w con DATE OF EXAM: 10/24/2018 COMPARISON: 10/17/2013 HISTORY: Generalized abdominal pain and vomiting bile. CT DLP: 543.4 mGycm Automated exposure control for dose reduction was used. TECHNIQUE: Helical acquisition of images was performed from the lung bases through the pelvis. CONTRAST: Performed without Oral Contrast and with IV Contrast, patient injected with 100 mL of Isovu e 300. FINDINGS: LUNG BASES: No significant abnormality is appreciated. LIVER/GB: No significant abnormality is appreciated. PANCREAS: No significant abnormality is seen. SPLEEN: No significant abnormality is seen. ADRENALS: No significant abnormality is seen. KIDNEYS: No significant abnormality is seen. PERITONEAL CAVITY: No free air is visualized. No peritoneal fluid. RETROPERITONEAL ADENOPATHY: None visualized REPRODUCTIVE ORGANS: No significant abnormality is seen URINARY BLADDER: No significant abnormality is seen. PELVIC ADENOPATHY: None visualized. OSSEOUS STRUCTURES: No significant abnormality is seen. BOWEL: No significant abnormality is seen. OTHER: No acute vascular findings. IMPRESSION: NO ACUTE PROCESS.
[2018-10-24 18:43] VITALS: BP 108/73; PULSE 79; RESP 16
== END 2018-10-24 18:45 | disposition home or self-care (01) ==
LOC: EC 14:42
DX: R11.2 Nausea with vomiting, unspecified (principal); R19.7 Diarrhea, unspecified; R10.33 Periumbilical pain; Z87.19 Personal history of other diseases of the digestive system; Z87.42 Personal history of other diseases of the female genital tract; Z90.49 Acquired absence of other specified parts of digestive tract; Z90.710 Acquired absence of both cervix and uterus; Z98.51 Tubal ligation status
CPT/HCPCS: 36415; 80053; 82150; 83690; 85025; 81001; 81025; 74177; 99284; 96374; 96361; J2405; Q9967

== ENCOUNTER → 2019-02-15 | Outpatient (CLI) | payer OTHER ==
[2019-02-15 13:24] LABS: HCT 38.4 % (34.0-46.0); HGB 12.3 gm/dL (11.4-16.0); MCH 31.3 pg (25.0-35.0); MCV 97.8 fL (80.0-100.0); Mean Platelet Volume 6.9; Platelet Count 214 k/uL (150-450); RBC 3.93 m/uL (3.80-5.40); RDW 13.5 % (11.5-15.5); WBC 5.6 k/uL (3.8-10.6)
[2019-02-15 18:28] LABS: African American GFR (CKD) 135.9 (60.0-200.0); Albumin 4.2 g/dL (3.80-4.90); Albumin/Globulin Ratio 2.21 (1.60-3.17); Anion Gap 6.6 mmol/L (4.00-12.00); BUN/Creat Ratio 13.33 Ratio (12.00-20.00); Carbon Dioxide 29.4 mmol/L (21.6-31.8); Globulin 1.9 g/dL (1.6-3.3); Potassium 4.1 mmol/L (3.5-5.5); Total Bilirubin 0.4 mg/dL (0.2-1.2); Total Protein 6.1 g/dL (6.2-8.2)
[2019-02-15 18:29] LABS: Vitamin D 25 Hydroxy 22.8 ng/mL (30.0-100.0)
[2019-02-15 18:30] LABS: Folate, Serum 7.7 ng/mL
== END | disposition home or self-care (01) ==
LOC: LABWHC1 12:11
PROVIDERS: ATTEND Nurse Practitioner Family
DX: R41.3 Other amnesia (principal)
CPT/HCPCS: 36415; 80053; 82306; 82607; 82746; 83090; 84439; 84443; 84481; 85027

== ENCOUNTER 2019-03-05 13:20 | Emergency (ER) | payer OTHER ==
[2019-03-05 13:58] VITALS: TEMP 98.4
[2019-03-05] MEDS ORDERED: PIPERACILLIN-TAZOBACTAM 3.375 GM in SODIUM CHLORIDE 0.9% 100 ML IVPB STA (14:42)
[2019-03-05] MEDS ORDERED: KETOROLAC 30 MG/ML 1 ML VIAL IVP STA (14:42)
--- NOTE | 2019-03-05 15:14 | ED ---
ENT HPI - General Source: patient, RN notes reviewed Mode of arrival: ambulatory Limitations: no limitations <Rex Ernst - Last Filed: 03/05/19 16:44> <Elly Arriaga - Last Filed: 03/08/19 01:21> - General Chief complaint: ENT Stated complaint: Sinus infection Time Seen by Provider: 03/05/19 14:31 - History of Present Illness Initial comments: 34-year-old female presents emergency department to complaint of left-sided facial pain, swelling. Patient states started last 5-6 states she has taken 4 days worth of Augmentin with progressively worsening symptoms. Patient states she's had 3 admitted in the past for similar infections. Patient has never seen an ENT outpatient. Patient states that she does have broken tooth and left upper dentition minute states it's not bothersome. She reports pain around her left eye, subjective fevers and chills and mild sinus headache. Denies neck pain or neck stiffness. Patient was instructed to come emergency from from PCPs office. (Rex Ernst) - Related Data Home Medications Medication Instructions Recorded Confirmed Ibuprofen [Motrin] 600 mg PO TID PRN 06/14/16 10/24/18 Previous Rx's Medication Instructions Recorded Ondansetron Odt [Zofran Odt] 4 mg PO Q8HR PRN 5 Days #15 tab 10/24/18 Clindamycin [Cleocin] 450 mg PO TID #63 capsule 03/05/19 Allergies Allergy/AdvReac Type Severity Reaction Status Date / Time No Known Allergies Allergy Verified 03/05/19 13:58 Review of Systems ROS Other: All systems not noted in ROS Statement are negative. <Rex Ernst - Last Filed: 03/05/19 16:44> ROS Other: All systems not noted in ROS Statement are negative. <Elly Arriaga - Last Filed: 03/08/19 01:21> ROS Statement: Those systems with pertinent positive or pertinent negative responses have been documented in the HPI. Past Medical History Past Medical History: GERD/Reflux Additional Past Medical History / Comment(s): endometriosis History of Any Multi-Drug Resistant Organisms: None Reported Past Surgical History: Cholecystectomy, Hysterectomy, Tubal Ligation Additional Past Surgical History / Comment(s): D&C, Past Anesthesia/Blood Transfusion Reactions: No Reported Reaction Past Psychological History: No Psychological Hx Reported Smoking Status: Never smoker Past Alcohol Use History: None Reported Past Drug Use History: None Reported - Past Family History Father History Unknown: Yes Mother Family Medical History: No Reported History Additional Family Medical History / Comment(s): HEALTHY <Rex Ernst - Last Filed: 03/05/19 16:44> General Exam Limitations: no limitations General appearance: alert, in no apparent distress Head exam: Present: atraumatic, normocephalic, normal inspection Eye exam: Present: normal appearance, PERRL, EOMI, periorbital swelling (Mild left), periorbital tenderness (Left). Absent: scleral icterus, conjunctival injection ENT exam: Present: mucous membranes moist, TM's normal bilaterally, normal external ear exam, other (Left maxillary sinus tenderness). Absent: normal exam, normal oropharynx (Poor dentition no abscess noted) Neck exam: Present: normal inspection, full ROM. Absent: tenderness, meningismus, lymphadenopathy Respiratory exam: Present: normal lung sounds bilaterally. Absent: respiratory distress, wheezes, rales, rhonchi, stridor Cardiovascular Exam: Present: regular rate, normal rhythm, normal heart sounds. Absent: systolic murmur, diastolic murmur, rubs, gallop, clicks Neurological exam: Present: alert, oriented X3, CN II-XII intact Skin exam: Present: warm, dry, intact, normal color. Absent: rash <Rex Ernst - Last Filed: 03/05/19 16:44> Course Vital Signs 03/05/19 03/05/19 13:55 17:58 Temperature 98.4 F Pulse Rate 99 91 Respiratory 20 14 Rate Blood Pressure 123/76 109/71 O2 Sat by Pulse 100 100 Oximetry Medical Decision Making - Lab Data Result diagrams: 03/05/19 15:25 03/05/19 15:25 <Rex Ernst - Last Filed: 03/05/19 16:44> - Lab Data Result diagrams: 03/05/19 15:25 03/05/19 15:25 <Elly Arriaga - Last Filed: 03/08/19 01:21> - Medical Decision Making Patient CT shows evidence of periapical abscess, involving the left maxillary region. Patient Augmentin 4 days. There is concern about periorbital infection given that she had some hand swelling. Patient will be admitted for failed outpatient treatment infection and placed on clindamycin consult to oral surgery (Rex Ernst) I was available for consultation in the emergency department. The history and physical exam were done by the midlevel provider. I was consulted for this patients care. I reviewed the case with the midlevel provider and based on their presentation of the patient, I agree with the assessment, medical decision making and plan of care as documented. I evaluated the patient myself. I called Dr. Xavier who requested that I call dental surgery. Dr. Francis is cupola operator insulation. He states that he will not extract teeth in the hospital and would prefer the patient be seen in his office tomorrow. I discussed this with the patient. She stated that she would prefer to follow up with her dentist in office tomorrow. I instructed her of the importance of following up tomorrow without fail. She understood. If she has any new or worsening symptoms she should return to the ED. Patient was discharged home. Chart was dictated using [employer] dictation software. Attempts were made to correct any dictation errors however some typographical errors may persist. (Elly Arriaga) - Lab Data Lab Results 03/05/19 03/05/19 03/05/19 Range/Units 15:25 15:25 15:25 WBC 7.2 (3.8-10.6) k/uL RBC 4.28 (3.80-5.40) m/uL Hgb 13.2 (11.4-16.0) gm/dL Hct 39.7 (34.0-46.0) % MCV 92.8 D (80.0-100.0) fL MCH 30.9 (25.0-35.0) pg MCHC 33.2 (31.0-37.0) g/dL RDW 13.0 (11.5-15.5) % Plt Count 208 (150-450) k/uL Neutrophils % 81 % Lymphocytes % 11 % Monocytes % 5 % Eosinophils % 1 % Basophils % 1 % Neutrophils # 5.8 (1.3-7.7) k/uL Lymphocytes # 0.8 L (1.0-4.8) k/uL Monocytes # 0.3 (0-1.0) k/uL Eosinophils # 0.1 (0-0.7) k/uL Basophils # 0.1 (0-0.2) k/uL Sodium 139 (137-145) mmol/L Potassium 3.6 (3.5-5.1) mmol/L Chloride 105 (98-107) mmol/L Carbon Dioxide 27 (22-30) mmol/L Anion Gap 7 mmol/L BUN 7 (7-17) mg/dL Creatinine 0.57 (0.52-1.04) mg/dL Est GFR (CKD-EPI)AfAm >90 (>60 ml/min/1.73 sqM) Est GFR (CKD-EPI)NonAf >90 (>60 ml/min/1.73 sqM) Glucose 122 H (74-99) mg/dL Plasma Lactic Acid Ken 1.0 (0.7-2.0) mmol/L Calcium 9.1 (8.4-10.2) mg/dL Total Bilirubin 0.5 (0.2-1.3) mg/dL AST 22 (14-36) U/L ALT 23 (9-52) U/L Alkaline Phosphatase 50 (38-126) U/L Total Protein 7.2 (6.3-8.2) g/dL Albumin 4.1 (3.5-5.0) g/dL Disposition <Rex Ernst - Last Filed: 03/05/19 16:44> Is patient prescribed a controlled substance at d/c from ED?: No Time of Disposition: 17:55 <Elly Arriaga - Last Filed: 03/08/19 01:21> Clinical Impression: Dental abscess Disposition: HOME SELF-CARE Condition: Fair Instructions (If sedation given, give patient instructions): Dental Abscess (ED) Additional Instructions: Follow-up with your dentist as soon as possible to have your tooth pulled Prescriptions: Clindamycin [Cleocin] 450 mg PO TID #63 capsule Referrals: Jose Lacey DO [Primary Care Provider] - 1-2 days
[2019-03-05 15:40] LABS: Basophils # (A) 0.1 k/uL (0-0.2); Basophils % (A) 1 %; Eosinophils # (A) 0.1 k/uL (0-0.7); Eosinophils % (A) 1 %; HCT 39.7 % (34.0-46.0); HGB 13.2 gm/dL (11.4-16.0); Lymphocytes # (A) 0.8 k/uL (1.0-4.8); Lymphocytes % (A) 11 %; MCH 30.9 pg (25.0-35.0); MCHC 33.2 g/dL (31.0-37.0); Mean Platelet Volume 6.7; Monocytes # (A) 0.3 k/uL (0-1.0); Monocytes % (A) 5 %; Neutrophils # (A) 5.8 k/uL (1.3-7.7); Neutrophils % (A) 81 %; Platelet Count 208 k/uL (150-450); RBC 4.28 m/uL (3.80-5.40); WBC 7.2 k/uL (3.8-10.6)
[2019-03-05 15:44] LABS: ALT 23 U/L (9-52); AST 22 U/L (14-36); African American GFR (CKD) >90 (>60 ml/min/1.73 sqM); Albumin 4.1 g/dL (3.5-5.0); Alkaline Phosphatase 50 U/L (38-126); Anion Gap 7 mmol/L; Blood Urea Nitrogen 7 mg/dL (7-17); Calcium 9.1 mg/dL (8.4-10.2); Carbon Dioxide 27 mmol/L (22-30); Chloride 105 mmol/L (98-107); Glucose 122 mg/dL (74-99); Potassium 3.6 mmol/L (3.5-5.1); Sodium 139 mmol/L (137-145); Total Bilirubin 0.5 mg/dL (0.2-1.3); Total Protein 7.2 g/dL (6.3-8.2)
[2019-03-05 15:56] LABS: MCV 92.8 fL (80.0-100.0)
--- NOTE | 2019-03-05 15:56 | CT ---
EXAMINATION TYPE: CT sinus w con DATE OF EXAM: 03/05/2019 COMPARISON: 06/10/2016 HISTORY: Left orbital/maxillary swelling and pain CT DLP: 437.5 mGycm Automated exposure control for dose reduction was used. CONTRAST: CT scan of the facial bones is performed with IV Contrast, patient injected with 100 mL of Isovue 300 . TECHNIQUE: CT scan of the sinuses is performed without contrast, axial images are obtained, coronal r eformatted images are also reviewed. FINDINGS: There is preseptal soft tissue swelling of the infraorbital region. No post septal soft tis donato swelling is seen. No post septal or preseptal fluid collection to suggest abscess. However there is a focal abscess overlying the left maxilla adjacent to a lucency of and anterior left maxillary to oth marked on image 5. This is along the extradural cortex and measures 1.0 x 0.5 cm with surrounding phlegmonous change. No cortical thickening to suggest osteomyelitis at this time. Paranasal sinuses and mastoid air cells and the visualized portions appear well aerated. Mandible is not included on th e images. Globes are symmetric and maintain a normal rounded morphology. Findings are similar from th e prior of 06/10/2016 represent a recurrent abscess formation. IMPRESSION: Recurrent abscess formation surrounding an anterior left maxillary tooth. Dentigerous abs cess of the external cortex of the maxilla measuring 1.0 x 0.5 cm with no current evidence of osteomy elitis.
[2019-03-05] MEDS ORDERED: IBUPROFEN 400 MG TAB PO PRN (16:46)
[2019-03-05] MEDS ORDERED: NALOXONE 0.4 MG/ML 1 ML VIAL IV PRN (16:46)
[2019-03-05] MEDS ORDERED: KETOROLAC 30 MG/ML 1 ML VIAL IVP PRN (16:46)
[2019-03-05] MEDS ORDERED: HYDROcodone/APAP 5-325MG 1 EACH TAB PO PRN (16:46)
[2019-03-05] MEDS ORDERED: ACETAMINOPHEN TAB 325 MG TAB PO PRN (16:46)
[2019-03-05] MEDS ORDERED: ONDANSETRON 4 MG/2 ML VIAL IVP PRN (16:46)
[2019-03-05] MEDS ORDERED: CLINDAMYCIN 600 MG in DEXTROSE 5% IN WATER 50 ML IVPB SCH ×2 (18:00)
[2019-03-05 18:04] VITALS: BP 109/71; PULSE 91; RESP 14
== END 2019-03-05 18:13 | disposition home or self-care (01) ==
LOC: EC 13:20
DX: K04.7 Periapical abscess without sinus (principal); K00.7 Teething syndrome; K03.81 Cracked tooth
CPT/HCPCS: 36415; 80053; 83605; 85025; 70487; 99283; 96365; 96366 ×2; 96375; J2543; J1885; Q9967

== ENCOUNTER → 2020-02-17 | Outpatient (CLI) | payer OTHER ==
--- NOTE | 2020-02-17 15:17 | MR ---
EXAMINATION TYPE: MR lumbar spine wo con DATE OF EXAM: 02/17/2020 COMPARISON: 03/02/2016 HISTORY: 35-year-old female M54.5, low back pain TECHNIQUE: Multiplanar, multisequence images of the lumbar spine were acquired. FINDINGS: Vertebral body heights are preserved and alignment is maintained. Mild facet arthropathy lower lumbar spine. No suspicious bone marrow replacement. Progressive, now mild to moderate degenerative disc disease at L5-S1 is desiccated and bulging disc. Progressive mild degenerative disc disease at L4-L5 with greater degree of disc desiccation and disc bulging. New left intraforaminal annular fissure at L4-L5. Conus medullaris is normal. There is a component of mild congenital spinal canal stenosis mid to lowe r lumbar spine with AP canal dimension of 1.2 cm. At T12-L1, no canal or foraminal stenosis. At L1/L2, no canal or foraminal stenosis. At L2-L3, no significant canal or foraminal stenosis. At L3-L4, mild facet arthropathy. No significant canal or foraminal stenosis. At L4-L5, minimal disc bulging. Mild facet arthropathy. Left intraforaminal disc protrusion with tommy lar fissure. This causes minimal inferior left neuroforaminal narrowing but the annular fissure lies adjacent to the exiting left L4 nerve root. No significant spinal canal stenosis. At L5-S1, broad-based posterior disc protrusion without significant spinal canal stenosis. Disc mater ial closely approaches but does not clearly abut the traversing left S1 nerve root. Along with facet arthropathy, there is mild bilateral neuroforaminal stenosis. No prevertebral or paravertebral soft tissue abnormality. IMPRESSION: 1. Mild degenerative disc disease L4-L5 and L5-S1 shows interval progression from 2014 with greater d egree of disc desiccation and disc bulging. 2. New left intraforaminal annular fissure at L4-L5 which lies adjacent to the exiting left L4 nerve root. 3. Mild facet arthropathy lower lumbar spine. 4. A component of mild congenital spinal canal stenosis mid and lower lumbar spine with AP canal dime nsion of 1.2 cm. No large focal disc herniation or significant spinal canal stenosis.
== END | disposition home or self-care (01) ==
LOC: RADMRIMAIN 11:12
PROVIDERS: ATTEND Orthopaedic Surgery
DX: M48.061 Spinal stenosis, lumbar region without neurogenic claudication (principal); M51.26 Other intervertebral disc displacement, lumbar region; M51.27 Other intervertebral disc displacement, lumbosacral region; M51.36 Other intervertebral disc degeneration, lumbar region; M51.37 Other intervertebral disc degeneration, lumbosacral region; M47.816 Spondylosis without myelopathy or radiculopathy, lumbar region
CPT/HCPCS: 72148

== ENCOUNTER 2020-02-18 12:38 | Day surgery (SDC) | payer OTHER ==
[2020-02-14 14:23] VITALS: BMI 28.3
[~2020-02-18 12:38] MED LIST: LACTATED RINGERS 1,000 ML IV SCH
[2020-02-18 13:08] VITALS: TEMP 97.8
[2020-02-18] MEDS ORDERED: LIDOCAINE 1% (10MG/ML) FOR IV START IV ONE (13:15)
[2020-02-18] MEDS ORDERED: methylPREDNISolone ACETATE 40 MG/ML 1 ML VIAL ONE (13:23)
[2020-02-18] MEDS ORDERED: ROPIVACAINE 5MG/ML 20ML VIAL ONE (13:23)
[2020-02-18] MEDS ORDERED: fentaNYL (PF) 50 MCG/ML 2 ML AMP ONE (13:23)
[2020-02-18] MEDS ORDERED: MIDAZOLAM 2 MG/2 ML VIAL ONE (13:23)
--- NOTE | 2020-02-18 13:38 | P.PCN ---
Date of Procedure: 02/18/20 Procedure(s) Performed: Procedure= Left sacroiliac joints steroid injection under fluoroscopy guidance (fluoroscopy image stored on file in the radiology Department ) Preoperative diagnosis= 1-left sacroiliitis 2-lumbar radiculopathy. Postoperative diagnosis=Same as preop Diagnosis . Complication = none Condition= stable Anesthesia= moderate sedation with intravenous Versed 2 mg , and fentanyl 50 micrograms . Indication for the procedure= patient complaining of low back pain , examination was positive for severe tenderness over the sacroiliac joints on thhe left side , and patient diagnosed with sacroiliitis, for this reason she was good candidate for sacroiliac joint steroid injection. Description of the procedure= procedure risk and benefits discussed with the patient, including but not limited, risk of infection and bleeding, and ALLERGIC reaction to the medication and not complete pain relief and patient agreed with the preceding patient taken to the operating room, placed in prone position or standard monitors applied to the patient then after induction of anesthesia back prepped with chlorhexidine 3 times . Then the left sacroiliac joint steroid injection done under strict sterile technique local infiltration of the skin and subcu interstitial at the location of the left sacroiliac joint then a 22-gauge Quincke Needle advanced slowly under fluoroscopy time placed in the left sacroiliac joint, needle placement confirmed with AP and oblique and lateral view then after appropriate needle placement confirmed and after negative aspiration 0.5% Marcaine 3 mL and 40 mg of Depo-Medrol injected in the left sacroiliac joint after negative aspiration patient tolerated the procedure well that any complications and she will follow up in clinic 3 weeks
[2020-02-18] MEDS ORDERED: IV FLUID CONTINUATION 800 ML IV ONE (13:41)
[2020-02-18 13:55] VITALS: RESP 20
[2020-02-18 14:22] VITALS: BP 120/76; PULSE 90
--- NOTE | 2020-02-18 15:19 | FL ---
EXAMINATION TYPE: FL guided pain mgmt statistic DATE OF EXAM: 02/18/2020 CLINICAL HISTORY: Left sacroiliac joint pain. TECHNIQUE: Fluoroscopy. COMPARISON: None. FINDINGS: Fluoroscopic guidance was provided during pain relief procedure performed by Dr. Ellison . A total of 5 seconds of fluoroscopic time was utilized during the procedure and 1 spot images are acquired. Single image acquired shows needle localization at inferior left sacroiliac joint level. IMPRESSION: As Above.
== END 2020-02-18 14:11 | disposition home or self-care (01) ==
LOC: ORPAIN 12:38
PROVIDERS: ATTEND Specialist
DX: M46.1 Sacroiliitis, not elsewhere classified (principal); M54.16 Radiculopathy, lumbar region; Z90.710 Acquired absence of both cervix and uterus
CPT/HCPCS: J2250; J1030; J3010; J2795; G0260; 27096

== ENCOUNTER → 2020-04-09 | Day surgery (SDC) | payer OTHER ==
[2020-04-08 09:48] VITALS: BMI 28.3
[~2020-04-09] MED LIST changes: +IOPAMIDOL M200 10 ML VIAL ONE; +IV FLUID CONTINUATION 1,000 ML IV ONE; +methylPREDNISolone ACETATE 40 MG/ML 1 ML VIAL ONE
[2020-04-09 11:57] VITALS: TEMP 97.4
--- NOTE | 2020-04-09 12:38 | P.PCN ---
Date of Procedure: 04/09/20 Procedure(s) Performed: PREOPERATIVE DIAGNOSIS: Lumbar radiculopathy . POSTOPERATIVE DIAGNOSIS: Same as preoperative diagnoses. PROCEDURE 1. Transforaminal epidural steroid injection under fluoroscopic guidance at left L4-5 level. (Fluoroscopy images stored on file in the radiology Department ) 2. Lumbar epidurogram . ANESTHESIA: Local with 1% lidocaine 3 ml only EBL: Minimal PROCEDURE INDICATION: The patient with low back pain and radiculopathy symptoms unresponsive to conservative treatment. PROCEDURE DESCRIPTION / TECHNIQUE: The patient was seen and identified in the preoperative area. Risks, benefits, complications, and alternatives were discussed with the patient. The patient agreed to proceed with the procedure and signed the consent. IV was started, and vital signs were stable. Patient was taken to the OR and time out was completed. The patient was placed in the prone position on procedure table and a pillow was placed under the abdomen to reduce lumbar lordosis. The lumbosacral area was prepped and draped in the usual sterile fashion. Critical pause was taken. Vital signs were closely monitored during the procedure. Using oblique fluoroscopy, the chin of the `Hazel dog at left L4-5 level was identified, and the skin and deeper tissues just below was localized with 1% lidocaine. Subsequently, a 22-gauge 3.5-inch spinal needle was advanced under a tunneled view fluoroscopic guidance just underneath the chin of the `Vanessay dog at the left L4-5 Under lateral fluoroscopy, the needle was then advanced to the posterior border of the interforaminal space. After negative aspiration of CSF and blood and with no paresthesias, 1 mL Isovue 200 contrast dye was injected excellent epidurogram and outlining of the nerve root Subsequently, 3 mL of block solution containing 80 mg Depo-Medrol and 2 mL of 0.9% normal saline PF was injected. Needle was removed . At the end of the procedure, skin was cleansed, and bandages were applied. COMPLICATIONS:none DISPOSITION / PLANS: The patient was placed in a supine position and transferred to the recovery area in a stable condition for observation. There was no evidence of lower extremity motor or sensory deficit after the procedure. Patient was discharged from the recovery room after meeting discharge criteria. Home discharge instructions were given to the patient by the staff. The patient was reexamined prior to discharge.
[2020-04-09 12:46] VITALS: RESP 16
[2020-04-09 13:06] VITALS: BP 118/58; PULSE 72
--- NOTE | 2020-04-09 13:14 | FL ---
EXAMINATION TYPE: FL guided pain mgmt statistic DATE OF EXAM: 04/09/2020 HISTORY: Fluoroscopy time 9 seconds of fluoroscopy provided. IMPRESSION: 1. Fluoroscopy time.
== END ==
LOC: ORPAIN 11:41
PROVIDERS: ATTEND Specialist
DX: M54.16 Radiculopathy, lumbar region (principal); Z90.710 Acquired absence of both cervix and uterus
CPT/HCPCS: 64483; J1030; Q9966

== ENCOUNTER → 2020-06-02 | Outpatient (CLI) | payer OTHER ==
--- NOTE | 2020-06-03 11:54 | MM ---
Reason for exam: screening (asymptomatic). Last mammogram was performed 2 years and 5 months ago. History: Patient has history of endometrial cancer at age 13. Family history of breast cancer in paternal aunt at age 50. Benign excisional biopsy of the left breast, 2005. Physical Findings: A clinical breast exam by your physician is recommended on an annual basis and results should be correlated with mammographic findings. MG Screening Mammo w CAD Bilateral CC and MLO view(s) were taken. Prior study comparison: January 12, 2018, bilateral MG diagnostic mammo w CAD [facility]. November 09, 2011, CAD bilateral diagnostic mammogram. The breast tissue is heterogeneously dense. This may lower the sensitivity of mammography. There is no discrete abnormality. No significant changes when compared with prior studies. ASSESSMENT: Negative, BI-RAD 1 RECOMMENDATION: Routine screening mammogram of both breasts in 1 year.
== END | disposition home or self-care (01) ==
LOC: RADMAMWWP 11:03
PROVIDERS: ATTEND Family Medicine
DX: Z12.31 Encounter for screening mammogram for malignant neoplasm of breast (principal)
CPT/HCPCS: 77067

== ENCOUNTER → 2021-11-02 | Outpatient (CLI) | payer OTHER ==
--- NOTE | 2021-11-03 15:02 | MM ---
Reason for Exam: Screening (asymptomatic). Last mammogram was performed 1 year(s) and 5 month(s) ago. Patient History: Menarche at age 9. First Full-Term at age 12. Hysterectomy at age 23. Endometrial cancer, age 13. 2006, Benign Excisional Biopsy on the left side. Paternal aunt had breast cancer, age 50. Risk Values: [place] 5 year model risk: 0.6%. NCI Lifetime model risk: 9.9%. Prior Study Comparison: 11/09/2011 Bilateral Diagnostic Mammogram, [facility]. 01/12/2018 Bilateral Diagnostic Mammogram, [facility]. 06/02/2020 Bilateral Screening Mammogram, [facility]. Tissue Density: The breast tissue is heterogeneously dense. This may lower the sensitivity of mammography. Findings: Analyzed By CAD. There is a few scattered round calcifications in both breasts redemonstrated. There is an 8 mm focal asymmetric density middle depth outer aspect left breast more prominent from prior studies, follow-up is advised. Overall Assessment: Incomplete: need additional imaging evaluation, BI-RAD 0 Management: Special View Mammogram of the left breast. Return for additional views including spot CC view and true lateral view left breast. Electronically signed and approved by: Nicholas Plaza M.D.
== END | disposition home or self-care (01) ==
LOC: RADMAMWWP 16:58
PROVIDERS: ATTEND Family Medicine
DX: Z12.39 Encounter for other screening for malignant neoplasm of breast (principal)
CPT/HCPCS: 77067

== ENCOUNTER → 2021-11-10 | Outpatient (CLI) | payer OTHER ==
--- NOTE | 2021-11-10 14:16 | MM ---
Reason for Exam: Additional evaluation requested from abnormal screening. Last screening mammogram was performed less than 1 month ago. Patient History: Menarche at age 9. First Full-Term at age 12. Hysterectomy at age 23. Endometrial cancer, age 13. 2006, Benign Excisional Biopsy on the left side. Paternal aunt had breast cancer, age 50. Risk Values: [place] 5 year model risk: 0.6%. NCI Lifetime model risk: 9.9%. Prior Study Comparison: 01/12/2018 Bilateral Diagnostic Mammogram, [facility]. 06/02/2020 Bilateral Screening Mammogram, [facility]. 11/02/2021 Bilateral MG screening mammo w CAD, [facility]. Tissue Density: Left: The breast tissue is heterogeneously dense. This may lower the sensitivity of mammography. Findings: Analyzed By CAD. No distinct new lesion persists on additional views. Overall Assessment: Negative, BI-RAD 1 Management: Screening Mammogram of both breasts in 1 year. Return to routine follow-up. Results were given to the patient verbally at the time of exam. Electronically signed and approved by: Nicholas Plaza M.D.
== END | disposition home or self-care (01) ==
LOC: RADMAMWWP 13:43
PROVIDERS: ATTEND Family Medicine
DX: R92.8 Other abnormal and inconclusive findings on diagnostic imaging of breast (principal)
CPT/HCPCS: 77065

== ENCOUNTER → 2022-02-17 | Outpatient (CLI) | payer OTHER ==
--- NOTE | 2022-02-17 12:02 | MR ---
EXAMINATION TYPE: MR lumbar spine wo con DATE OF EXAM: 02/17/2022 COMPARISON: Lumbar MRI 02/17/2020 HISTORY: Low back pain TECHNIQUE: Multiplanar, multisequence images of the lumbar spine were acquired without IV contrast. L1-L2: Normal disc appearance without desiccation. No herniation, protrusion or disc bulging. No ca nal stenosis is present. Foramina are patent bilaterally. L2-L3: Normal disc appearance without desiccation. No herniation, protrusion or disc bulging. No ca nal stenosis is present. Foramina are patent bilaterally. L3-L4: Normal disc appearance without desiccation. No herniation, protrusion or disc bulging. No ca nal stenosis is present. Foramina are patent bilaterally. L4-L5: Increased signal seen within the posterior aspect of the disc to the left of midline may repre sent an annular tear similar to prior exam. Minimal posterior disc bulging. There is some facet arthr opathy change. Circumferential extension of disc material present towards the left causes some encroa chment on the inferior aspect of the neural foramen. L5-S1: Posterior central disc protrusion is similar to prior exam, there may be contact with the prox imal S1 nerve roots. Circumferential extension of endplate disc complex causes some mild encroachment interest foramina, there is facet arthropathy change as on prior Lumbar segments are intact. No paraspinal masses are identified. Conus medullaris has a normal appe arance. No significant spinal stenosis. There is some loss of disc signal at L5-S1, L4-5 similar to p rior exam. Dilated common bile duct is again noted. IMPRESSION: Findings are similar to prior exam. Degenerative disc disease, facet arthropathy, foraminal encroachm ent as described. Dilated common bile duct likely due to postcholecystectomy change.
== END | disposition home or self-care (01) ==
LOC: RADMRIMAIN 08:36
PROVIDERS: ATTEND Orthopaedic Surgery
DX: M54.50 Low back pain, unspecified (principal)
CPT/HCPCS: 72148

== ENCOUNTER → 2022-11-11 | Outpatient (CLI) | payer OTHER ==
--- NOTE | 2022-11-14 08:52 | MM ---
Reason for Exam: Screening (asymptomatic). Last screening mammogram was performed 12 month(s) ago. Patient History: Menarche at age 9. First Full-Term at age 12. Hysterectomy at age 23. Endometrial cancer, age 13. Unspecified Hormone, from age 21 until age 24. 2006, Benign Excisional Biopsy on the left side. Paternal aunt had breast cancer, age 50. Risk Values: [place] 5 year model risk: 0.6%. NCI Lifetime model risk: 9.9%. Prior Study Comparison: 06/02/2020 Bilateral Screening Mammogram, [facility]. 11/02/2021 Bilateral MG screening mammo w CAD, [facility]. 11/10/2021 Left MG work up mamm w CAD , [facility]. Tissue Density: The breast tissue is heterogeneously dense. This may lower the sensitivity of mammography. Findings: Analyzed By CAD. Asymmetry left breast middle depth 7.3 cm from the nipple measuring 7 mm slightly medial. Asymmetry right breast middle/posterior depth 8.3 cm from the nipple measuring 6 mm. Additional right breast asymmetry more laterally is a 9 mm 10.3 cm from nipple. No suspicious calcifications. Overall Assessment: Incomplete: need additional imaging evaluation, BI-RAD 0 Management: Diagnostic Mammogram of both breasts. Bilateral 3-D imaging with additional spot compression views. [facility] will attempt to contact patient to return for supplemental views and ultrasound if indicated. Patient should continue monthly self-breast exams. A clinical breast exam by your physician is recommended on an annual basis. This exam should not preclude additional follow-up of suspicious palpable abnormalities. Note on Keara scores and lifetime risk: 1. A Keara score greater than 3% is considered moderate risk. If this is the case, consider specialist referral to assess eligibility for a risk reducing agent. 2. If overall lifetime risk for the development of breast cancer is 20% or higher, the patient may qualify for future screening with alternating mammogram and breast MRI. Electronically signed and approved by: Seth Dougherty DO
== END | disposition home or self-care (01) ==
LOC: RADMAMWWP 07:33
PROVIDERS: ATTEND Family Medicine
DX: Z12.31 Encounter for screening mammogram for malignant neoplasm of breast (principal); Z80.3 Family history of malignant neoplasm of breast
CPT/HCPCS: 77067

== ENCOUNTER → 2022-11-16 | Outpatient (CLI) | payer OTHER ==
--- NOTE | 2022-11-16 10:50 | MM ---
Reason for Exam: Follow-up at short interval from prior study. Last screening mammogram was performed less than 1 month ago. Patient History: Menarche at age 9. First Full-Term at age 12. Hysterectomy at age 23. Endometrial cancer, age 13. Unspecified Hormone, from age 21 until age 24. 2006, Benign Excisional Biopsy on the left side. Paternal aunt had breast cancer, age 50. Risk Values: [place] 5 year model risk: 0.6%. NCI Lifetime model risk: 9.9%. Prior Study Comparison: 11/10/2021 Left MG work up mamm w CAD , [facility]. 11/11/2022 Bilateral MG screening mammo w CAD, [facility]. Tissue Density: The breast tissue is heterogeneously dense. This may lower the sensitivity of mammography. Findings: Analyzed By CAD. Complex pattern is stable. Under compression asymmetric densities appear to disperse normally. No underlying architectural distortion spiculated or lobular masses are evident. Overall Assessment: Benign, BI-RAD 2 Management: Screening Mammogram of both breasts in 1 year. A negative mammogram report should not preclude additional follow up of suspicious palpable abnormalities. Patient should continue monthly self breast exam. A clinical breast exam by your physician is recommended on an annual basis and results should be correlated with mammographic findings. Electronically signed and approved by: Conor Garcia D.O. Radiologis
== END | disposition home or self-care (01) ==
LOC: RADMAMWWP 10:17
PROVIDERS: ATTEND Family Medicine
DX: R92.8 Other abnormal and inconclusive findings on diagnostic imaging of breast (principal); Z80.3 Family history of malignant neoplasm of breast
CPT/HCPCS: 77066; G0279; 77062

== ENCOUNTER → 2023-04-21 | Outpatient (CLI) | payer OTHER ==
--- NOTE | 2023-04-21 12:18 | CT ---
EXAMINATION TYPE: CT abdomen wo con DATE OF EXAM: 04/21/2023 COMPARISON: None available. HISTORY: Bloating and right upper quadrant pain. CT DLP: 279.1 mGycm Automated exposure control for dose reduction was used. TECHNIQUE: Helical acquisition of images was performed from the lung bases through the top of iliac crest to include entire abdomen. CONTRAST: Performed with Oral Contrast and without IV contrast. FINDINGS: LUNG BASES: No significant abnormality is appreciated. LIVER/GB: No focal liver lesions are seen on this noncontrast examination. The gallbladder surgically absent PANCREAS: No significant abnormality is seen. SPLEEN: No significant abnormality is seen. ADRENALS: No significant abnormality is seen. KIDNEYS: No significant abnormality is seen. BOWEL: No significant abnormality is seen. LYMPH NODES: No significant abnormality is appreciated. OSSEOUS STRUCTURES: No significant abnormality is seen. FREE AIR: No free air is visualized. OTHER: Nothing significant. IMPRESSION: NO ACUTE ABNORMALITY WITHIN THE ABDOMEN.
== END | disposition home or self-care (01) ==
LOC: RADCTMAIN 11:21
PROVIDERS: ATTEND Family Medicine
DX: R10.11 Right upper quadrant pain (principal); R14.0 Abdominal distension (gaseous)
CPT/HCPCS: 74150

== ENCOUNTER → 2023-07-13 | Outpatient (CLI) | payer OTHER ==
[2023-07-13 18:07] LABS: Basophils # (A) 0.05 X 10*3/uL (0.00-0.10); Basophils % (A) 0.9 %; Eosinophils % (A) 3.8 %; HGB 12.6 g/dL (12.0-15.0); Lymphocytes # (A) 1.54 X 10*3/uL (0.90-5.00); Lymphocytes % (A) 29.1 %; MCH 31.3 pg (27.0-32.0); MCHC 32.3 g/dL (32.0-37.0); MCV 96.8 FL (80.0-97.0); Mean Platelet Volume 10.1 FL (9.5-12.2); Monocytes # (A) 0.29 X 10*3/uL (0.20-1.00); Monocytes % (A) 5.5 %; NRBC Per 100 WBC 0 X 10*3/uL (0.00-0.01); Neutrophils % (A) 60.3 %; Platelet Count 234 X 10*3/uL (140-440); RBC 4.03 X 10*6/uL (4.10-5.20); RDW 13.8 % (11.5-14.5)
[2023-07-13 18:55] LABS: ALT 19 U/L (8-44); AST 20 U/L (13-35); Albumin 4.4 g/dL (3.8-4.9); Albumin/Globulin Ratio 1.83 Ratio (1.60-3.17); Alkaline Phosphatase 64 U/L (41-126); BUN/Creat Ratio 13.43 Ratio (12.00-20.00); Blood Urea Nitrogen 9.4 mg/dL (9.0-27.0); Calcium 9.4 mg/dL (8.7-10.3); Carbon Dioxide 27.5 mmol/L (21.6-31.8); Chloride 106 mmol/L (96-109); Globulin 2.4 g/dL (1.6-3.3); Glucose 105 mg/dL (70-110); Potassium 4.4 mmol/L (3.5-5.5); Sodium 143 mmol/L (135-145); Total Bilirubin <0.2 mg/dL (0.3-1.2); Total Protein 6.8 g/dL (6.2-8.2)
== END | disposition home or self-care (01) ==
LOC: LABWHC1 10:27
PROVIDERS: ATTEND Internal Medicine Gastroenterology
DX: R10.13 Epigastric pain (principal)
CPT/HCPCS: 36415; 80053; 83516; 85025

== ENCOUNTER → 2023-11-24 | Outpatient (CLI) | payer BC, OTHER ==
--- NOTE | 2023-11-24 14:19 | NM ---
EXAMINATION TYPE: NM bone SPECT DATE OF EXAM: 11/24/2023 COMPARISON: NONE CLINICAL INDICATION: Female, 38 years old with history of M54.42 LUMBAGO; TECHNIQUE: After the intravenous administration of 24.8 mCi Tc 99m MDP. Images acquired 5.25 hours post injection. SPECT views of the lumbar spine are submitted. There is abnormal uptake involving the right L3 and L4 pedicle. Recommend follow-up MRI. IMPRESSION: Intense abnormal uptake right L3 and L4 pedicle more pronounced at L4. Recommend follow-u p MRI to assess for pars defect, post traumatic injury or intraosseous lesion.
== END | disposition home or self-care (01) ==
LOC: RADNMMAIN 07:26
PROVIDERS: ATTEND Orthopaedic Surgery Orthopaedic Surgery of the Spine
DX: M62.830 Muscle spasm of back (principal); Q76.0 Spina bifida occulta; R26.2 Difficulty in walking, not elsewhere classified; M51.16 Intervertebral disc disorders with radiculopathy, lumbar region
CPT/HCPCS: 78803; A9503

== ENCOUNTER → 2024-05-09 | Outpatient (CLI) | payer BC ==
--- NOTE | 2024-05-10 07:54 | MM ---
Reason for Exam: Screening (asymptomatic). Last mammogram was performed 1 year(s) and 6 month(s) ago. Patient History: Menarche at age 9. First Full-Term at age 12. Hysterectomy at age 23. Endometrial cancer, age 13. Unspecified Hormone, from age 21 until age 24. 2006, Benign Excisional Biopsy on the left side. Paternal aunt had breast cancer, age 50. Risk Values: K[place]a 5 year model risk: 0.8%. NCI Lifetime model risk: 9.7%. Prior Study Comparison: 11/10/2021 Left MG work up mamm w CAD LT, [facility]. 11/11/2022 Bilateral MG screening mammo w CAD, [facility]. 11/16/2022 Bilateral MG 3D work up w/cad [facility], [facility]. Tissue Density: The breasts are heterogeneously dense, which may obscure small masses. Findings: Analyzed By CAD. Right breast: There is no suspicious group of microcalcifications or new suspicious mass. Benign-appearing calcifications right breast. Left breast: There is no suspicious group of microcalcifications or new suspicious mass. Overall Assessment: Negative, BI-RAD 1 Management: Screening Mammogram of both breasts in [address] [facility] will attempt to contact patient to return for supplemental views and ultrasound if indicated. Patient should continue monthly self-breast exams. A clinical breast exam by your physician is recommended on an annual basis. This exam should not preclude additional follow-up of suspicious palpable abnormalities. Note on Keara scores and lifetime risk: 1. A Keara score greater than 3% is considered moderate risk. If this is the case, consider specialist referral to assess eligibility for a risk reducing agent. 2. If overall lifetime risk for the development of breast cancer is 20% or higher, the patient may qualify for future screening with alternating mammogram and breast MRI. [facility], , 05/10/2024 7:51 AM. Electronically signed and approved by: Seth Dougherty DO
== END | disposition home or self-care (01) ==
LOC: RADMAMWWP 14:29
PROVIDERS: ATTEND Family Medicine
DX: Z12.31 Encounter for screening mammogram for malignant neoplasm of breast (principal); Z80.3 Family history of malignant neoplasm of breast; R92.333 Mammographic heterogeneous density, bilateral breasts
CPT/HCPCS: 77067

== ENCOUNTER → 2024-11-13 | Outpatient (CLI) | payer BC ==
--- NOTE | 2024-11-13 12:53 | CA ---
Transthoracic Echo Report Name: Britt Roberts Age: 39 Gender: F : 1985 Exam Date: 11/13/2024 11:33 Exam Location: [facility] Ht (in): 60 Wt (lb): 173 Ordering Physician: Jose Lacey DO Attending/Referring Phys: Ashley Lucas [facility] [employer] Amita Win RDCS Procedure CPT: Indications: R06.02 SOB Cardiac Hx: Technical Quality: Good Contrast 1: Total Dose (mL): Contrast 2: Total Dose (mL): MEASUREMENTS (Male / Female) Normal Values 2D ECHO LV Diastolic Diameter PLAX 4.2 cm 4.2 - 5.9 / 3.9 - 5.3 cm LV Systolic Diameter PLAX 2.6 cm IVS Diastolic Thickness 0.9 cm 0.6 - 1.0 / 0.6 - 0.9 cm LVPW Diastolic Thickness 1.0 cm 0.6 - 1.0 / 0.6 - 0.9 cm LV Relative Wall Thickness 0.4 RV Internal Dim ED PLAX 2.1 cm LA Systolic Diameter LX 3.4 cm 3.0 - 4.0 / 2.7 - 3.8 cm LV Diastolic Volume MOD BP 46.5 cm??? 67 - 155 / 56 - 104 cm??? LV Systolic Volume MOD BP 22.6 cm??? 22 - 58 / 19 - 49 cm??? LV Ejection Fraction MOD BP 51.5 % >= 55 % LV Cardiac Index MOD BP 1172.9 cm???/min???m??? LV Diastolic Volume MOD 4C 38.7 cm??? LV Systolic Volume MOD 4C 23.6 cm??? LV Ejection Fraction MOD 4C 39.0 % LV Cardiac Index MOD 4C 740.3 cm???/min???m??? LV Diastolic Length 4C 6.6 cm LV Systolic Length 4C 5.0 cm LV Diastolic Volume MOD 2C 54.8 cm??? LV Systolic Volume MOD 2C 21.6 cm??? LV Ejection Fraction MOD 2C 60.6 % LV Cardiac Index MOD 2C 1625.3 cm???/min???m??? LV Diastolic Length 2C 6.4 cm LV Systolic Length 2C 5.0 cm LA Volume 31.9 cm??? 18 - 58 / 22 - 52 cm??? LA Volume Index 17.1 cm???/m??? 16 - 28 cm???/m??? M-MODE Aortic Root Diameter MM 2.4 cm LA Systolic Diameter MM 3.2 cm LA Ao Ratio MM 1.4 AV Cusp Separation MM 1.6 cm DOPPLER MV Area PHT 3.0 cm??? Mitral E Point Velocity 78.3 cm/s Mitral A Point Velocity 69.6 cm/s Mitral E to A Ratio 1.1 MV Deceleration Time 256.9 ms TR Peak Velocity 203.4 cm/s TR Peak Gradient 16.5 mmHg Right Ventricular Systolic Press 21.1 mmHg FINDINGS Left Ventricle Left ventricular ejection fraction is estimated at 55-60%. Normal Left ventricular size, wall thickness, systolic function with no obvious regional wall motion abnormalities. Normal Left ventricular diastolic filling pattern. Right Ventricle Normal right ventricular size and function. Right ventricular systolic pressure within normal limits. Right Atrium Normal right atrial size. Left Atrium Normal left atrial size. Mitral Valve Structurally normal mitral valve. Trace mitral regurgitation. No mitral stenosis. Aortic Valve Trileaflet aortic valve. No aortic valve stenosis or regurgitation. Tricuspid Valve Structurally normal tricuspid valve. Trace to mild tricuspid regurgitation. No tricuspid stenosis. Pulmonic Valve Structurally normal pulmonic valve. Trace pulmonic regurgitation. No pulmonic stenosis. Pericardium No pericardial or pleural effusion. Aorta Normal size aortic root and proximal ascending aorta. CONCLUSIONS Normal biventricular systolic function No significant valvular abnormalities Normal pulmonary artery systolic pressure Previewed by: Dr. Dalton Colon MD (Electronically Signed) Final Date: 13 November 2024 12:52
== END | disposition home or self-care (01) ==
LOC: RADECHMAIN 11:26
PROVIDERS: ATTEND Family Medicine
DX: R06.02 Shortness of breath (principal)
CPT/HCPCS: 93306